=== PATIENT | male | born 1995 | race Caucasian/White ===

== ENCOUNTER 2023-06-22 13:43 | Outpatient (OUT) | payer OTHER, SELFPAY ==
--- NOTE | 2023-06-22 | XR_ITS ---
The [address] [address] Patient Name: LAURA COMBS MRN: [id number] date: 1995 Sex: M Assigned Patient Location: [facility] Current Patient Location: Accession/Order Number: [id number] Exam Date: 06/22/2023 14:08 Report Date: 06/23/2023 00:03 At the request of: JULIANNE PARKER Procedure: XR ankle RT min 3V PROCEDURE: XR foot RT min 3V, XR ankle RT min 3V HISTORY: RIGHT FOOT PAIN , right ankle pain COMPARISON: XR foot right 05/07/2022 FINDINGS: BONES:No fracture, acute abnormality, or significant arthropathy. SOFT TISSUES:No visible soft tissue swelling. EFFUSION:None visible. OTHER: Negative. XR/XR ankle RT min 3V IMPRESSION: 1. No acute bone abnormality or significant degenerative changes to account for patient's symptoms. Electronically authenticated by: JUAN JOHNS Date: 06/23/2023 00:03
--- NOTE | 2023-06-22 | XR_ITS ---
The [address] [address] Patient Name: LAURA COMBS MRN: [id number] date: 1995 Sex: M Assigned Patient Location: [facility] Current Patient Location: Accession/Order Number: [id number] Exam Date: 06/22/2023 14:08 Report Date: 06/23/2023 00:03 At the request of: JULIANNE PARKER Procedure: XR foot RT min 3V PROCEDURE: XR foot RT min 3V, XR ankle RT min 3V HISTORY: RIGHT FOOT PAIN , right ankle pain COMPARISON: XR foot right 05/07/2022 FINDINGS: BONES:No fracture, acute abnormality, or significant arthropathy. SOFT TISSUES:No visible soft tissue swelling. EFFUSION:None visible. OTHER: Negative. XR/XR foot RT min 3V IMPRESSION: 1. No acute bone abnormality or significant degenerative changes to account for patient's symptoms. Electronically authenticated by: UJAN JOHNS Date: 06/23/2023 00:03
== END 2023-06-22 13:44 | disposition home or self-care (01) ==
PROVIDERS: Visit Provider Podiatrist Foot & Ankle Surgery
DX: M79.671 Pain in right foot (principal); M25.571 Pain in right ankle and joints of right foot
CPT/HCPCS: 73610; 73630